=== PATIENT | female | born 1990 | race Caucasian/White ===

== ENCOUNTER 2017-01-05 09:14 | Emergency (ER) | payer OTHER ==
--- NOTE | 2017-01-05 09:34 | UC ---
Skin Complaint HPI - HPI Summary HPI Summary: 26 yo female with PMH chronic pain, hx of ETOH abuse in remission, depression and anxiety who presents with 5 days of pain, swelling and redness to left side of nose, she noted left facial swelling and tenderness in "front of my ear and behind my ear where my gland is" starting 3 days ago. No know injury or trauma, she does not think it was a pimple but reports its possible. possible chills yesterday but denies fevers. Denies N/V/D. No sob or CP. - History of Current Complaint Chief Complaint: UCSkin Time Seen by Provider: 01/05/17 09:17 Stated Complaint: FACIAL SWELLING Hx Obtained From: Patient Hx Last Menstrual Period: unknown ?: No Onset/Duration: Gradual Onset - started 5 days ago Skin Exposure Onset/Duration: Days Ago Timing: Constant Onset Severity: Mild Current Severity: Moderate Pain Intensity: 7 Pain Scale Used: 0-10 Numeric Location: Discrete - left side of nose radiating to left face and ear, Face, Nose Character: Pain, Redness Aggravating: Touch Alleviating: Heat, OTC Meds, Cold Compresses Associated Signs & Symptoms: Positive: Chills, Rash, Tenderness. Negative: Nausea, Vomiting, Thirst, Weakness, Shivering, Difficulty Breathing, Fever, Cough, Wheezing, Chest Pain, Hoarseness, Throat Tightening, Lightheadedness, Red Streaks - Allergy/Home Medications Allergies/Adverse Reactions: Allergies Allergy/AdvReac Type Severity Reaction Status Date / Time Cetirizine [From Zyrtec] Allergy Severe throat Verified 05/21/16 13:50 swelling,dry tongue Ciprofloxacin [From Cipro] Allergy Severe Rash Verified 05/21/16 13:50 Latex Allergy Severe rash,itchin Verified 05/21/16 13:50 g Home Medications: Home Medications Baclofen TAB* [Lioresal TAB*] 10 mg PO TID 01/05/17 [History Confirmed 01/05/17] Ibuprofen [Advil Migraine] 400 mg PO Q6HR PRN 01/05/17 [History Confirmed ] Review of Systems Constitutional: Chills Skin: Rash - redness and swelling to nose Eyes: Negative ENT: Other - difficult to blow her nose Respiratory: Negative Cardiovascular: Negative Gastrointestinal: Negative Genitourinary: Negative Motor: Negative Neurovascular: Negative Musculoskeletal: Negative Neurological: Negative Psychological: Negative All Other Systems Reviewed And Are Negative: Yes PMH/Surg Hx/FS Hx/Imm Hx Previously Healthy: No - Surgical History Surgical History: Yes Surgery Procedure, Year, and Place: Appendectomy. - Family History Known Family History: Positive: Hypertension - Social History Alcohol Use: None Substance Use Type: None Substance Use Comment - Amount & Last Used: RECOVERING ALCHOHOLIC Smoking Status (MU): Heavy Every Day Tobacco Smoker Type: Cigarettes, eCigarettes Amount Used/How Often: 1/2 PPD Length of Time of Smoking/Using Tobacco: 12 yrs Have You Smoked in the Last Year: Yes When Did the Patient Quit Smoking/Using Tobacco: 08/14 Household Exposure Type: Cigarettes Cessation Counseling: Counseled 3+Min - 10 Min Physical Exam Triage Information Reviewed: Yes Appearance: Well-Appearing, Well-Nourished, Pain Distress - mild Vital Signs: Initial Vital Signs Temp 98.4 F 01/05/17 09:18 Pulse 91 01/05/17 09:18 Resp 16 01/05/17 09:18 BP 112/62 01/05/17 09:18 Pulse Ox 100 01/05/17 09:18 Vital Signs Reviewed: Yes Eyes: Positive: Conjunctiva Clear ENT: Positive: Pharynx normal, Other: - no noted lesions in nares. Large area of erythema and mild edema on left side of nose, no noted lesion. No noted facial swelling.. Negative: Pharyngeal erythema, Nasal congestion, Nasal drainage, Tonsillar swelling, Tonsillar exudate Neck: Positive: Supple, Nontender, No Lymphadenopathy, Tenderness @ Respiratory: Positive: Chest non-tender, Lungs clear, Normal breath sounds, No respiratory distress, No accessory muscle use Cardiovascular: Positive: RRR, No Murmur, Pulses Normal, Brisk Capillary Refill Musculoskeletal: Positive: ROM Intact Neurological Exam: Normal Neurological: Positive: Alert Psychological Exam: Normal Skin: Positive: Other - erythema noted to left side of nose with noted edema present; no facial swelling noted; tender preauricular and tonsilar nodes to palpation Course/Dx - Differential Diagnoses - Skin Complaint Differential Diagnoses: Cellulitis, Local Allergic Reaction - Diagnoses Provider Diagnoses: 1. cellulitis to nose - Physician Notification/Consults Discussed Patient Care With: discussed discharge plan with pt Discharge - Discharge Plan Condition: Stable Disposition: HOME Prescriptions: Cephalexin CAP* [Keflex CAP*] 500 mg PO QID #28 cap Patient Education Materials: Cellulitis (ED) Referrals: Shannon Cristina MD [Primary Care Provider] - 2 Days (please follow up in 2-3 days. ) Additional Instructions: It appears you have a cellulitis on your nose. Finish whole course of antibiotics. If you have any worsening or concerning symptoms see your primary immediately, return to urgent care , or go to the emergency department.
[2017-01-05 09:42] VITALS: BP 112/62
== END 2017-01-05 10:01 | disposition home or self-care (01) ==
LOC: UCCORT 09:14
DX: J34.0 Abscess, furuncle and carbuncle of nose (principal); Z88.1 Allergy status to other antibiotic agents; F17.210 Nicotine dependence, cigarettes, uncomplicated; Z71.6 Tobacco abuse counseling
CPT/HCPCS: 99212; G0463

== ENCOUNTER 2017-05-17 07:23 | Emergency (ER) | payer SELFPAY ==
[2017-05-17 07:49] VITALS: BP 114/65
--- NOTE | 2017-05-17 07:55 | UC ---
Throat Pain/Nasal Avery HPI - HPI Summary HPI Summary: 26 yo female with URI symptoms greater than a week nasal congestion/post nasal drrip and facial pressure and pain past two days right facial pain has worsened/upper teeth and gums are now sensitive no f/c right [place] and right hemicranial headache thinks she is LMP end of MARCH - History of Current Complaint Chief Complaint: UCGeneralIllness Stated Complaint: HEAD PAIN/POSSIBLE Time Seen by Provider: 05/17/17 07:31 Hx Last Menstrual Period: HAS NOT HAD A PERIOD SINCE STOPPING DEPO IN MARCH, STATES NOT SEXUALLY ACTIVE Onset/Duration: Gradual Onset Severity: Moderate Pain Intensity: 6 Pain Scale Used: 0-10 Numeric - Allergies/Home Medications Allergies/Adverse Reactions: Allergies Allergy/AdvReac Type Severity Reaction Status Date / Time Cetirizine [From Zyrtec] Allergy Severe throat Verified 05/17/17 07:30 swelling,dry tongue Ciprofloxacin [From Cipro] Allergy Severe Rash Verified 05/17/17 07:30 Latex Allergy Severe rash,itchin Verified 05/17/17 07:30 g PMH/Surg Hx/FS Hx/Imm Hx Previously Healthy: Yes - Surgical History Surgical History: Yes Surgery Procedure, Year, and Place: Appendectomy. - Family History Known Family History: Positive: Hypertension - Social History Alcohol Use: None Substance Use Type: None Substance Use Comment - Amount & Last Used: RECOVERING ALCHOHOLIC Smoking Status (MU): Heavy Every Day Tobacco Smoker Type: Cigarettes, eCigarettes Amount Used/How Often: 1/2 PPD Length of Time of Smoking/Using Tobacco: 12 yrs Have You Smoked in the Last Year: Yes When Did the Patient Quit Smoking/Using Tobacco: 08/14 Household Exposure Type: Cigarettes Review of Systems Constitutional: Negative Skin: Negative Eyes: Negative ENT: Dental Pain, Ear Ache, Nasal Discharge, Sinus Congestion, Sinus Pain/ Tenderness Respiratory: Negative Cardiovascular: Negative Gastrointestinal: Negative Genitourinary: Negative Motor: Negative Neurovascular: Negative Musculoskeletal: Negative Neurological: Negative Psychological: Anxious All Other Systems Reviewed And Are Negative: Yes Physical Exam Triage Information Reviewed: Yes Appearance: Well-Appearing, No Pain Distress, Well-Nourished Vital Signs: Initial Vital Signs Temp 97.8 F 05/17/17 07:31 Pulse 98 05/17/17 07:31 Resp 16 05/17/17 07:31 BP 114/65 05/17/17 07:31 Pulse Ox 98 05/17/17 07:31 Eyes: Positive: Conjunctiva Clear ENT: Positive: Nasal congestion, Nasal drainage, Other: - bilat max sinus tenderness L>R. Negative: Hearing grossly normal - decreased hearing Left, TMs normal - both TMs scarred/left retracted , right bulging with bubbles noted behind TM, Tonsillar swelling, Tonsillar exudate, Trismus Neck: Positive: Supple, Nontender, Enlarged Nodes @ - ant cervical Respiratory: Positive: Lungs clear, Normal breath sounds, No respiratory distress, No accessory muscle use Cardiovascular: Positive: RRR, No Murmur Neurological: Positive: Alert, Muscle Tone Normal, Other: - cn2-12 intact/ strenght 5/5, normal gait GCS 15/15 Psychological Exam: Normal Skin Exam: Normal Throat Pain/Nasal Course/Dx - Differential Dx/Diagnosis Provider Diagnoses: acute sinusitis. Discharge - Discharge Plan Condition: Stable Disposition: HOME Prescriptions: Amoxicillin PO (*) [Amoxicillin 875 MG (*)] 875 mg PO BID #20 tab Patient Education Materials: (ED), Sinusitis (ED) Forms: *Gen. Provider Communication Referrals: Shannon Cristina MD [Primary Care Provider] - Additional Instructions: you should start vits with folate you need to find an OB recheck for new or worsening symptoms tylenol avoid advil/aleve\ warm facial compresses
== END 2017-05-17 08:04 | disposition home or self-care (01) ==
LOC: UCCORT 07:23
DX: J01.90 Acute sinusitis, unspecified (principal); H92.01 Otalgia, right ear; R51 Headache; Z32.01 Encounter for pregnancy test, result positive; Z88.1 Allergy status to other antibiotic agents; Z88.8 Allergy status to other drugs, medicaments and biological substances; Z91.040 Latex allergy status; F17.210 Nicotine dependence, cigarettes, uncomplicated
CPT/HCPCS: 81003; 84702; 87086; 99212; G0463

== ENCOUNTER 2017-08-26 10:04 | Emergency (ER) | payer OTHER ==
[2017-08-26 10:21] VITALS: BP 99/57
--- NOTE | 2017-08-26 10:55 | UC ---
Complaint Female HPI - HPI Summary HPI Summary: 27 year old 19 weeks . Pt here w/ lower abd cramping since waking up 0600 this morning. Pt 19 weeks . States cramping worse after voiding- denies any dysuria and hematuria, but c/o some lower back pain. Last OBGYN check up was last week, sonogram was "good, but showed ovary pushed against hip ". Next f/u w/ OBGYN next Wednesday. hAVING burning with urination and 8/10 pain in the RLQ at times no spotting. no fever. [ End ] - History Of Current Complaint Chief Complaint: UCGeneralIllness Stated Complaint: SEVERE CRAMPING,19 WEEKS Time Seen by Provider: 08/26/17 10:23 Hx Obtained From: Patient Hx Last Menstrual Period: HAS NOT HAD A PERIOD SINCE STOPPING DEPO IN MARCH, STATES NOT SEXUALLY ACTIVE Onset/Duration: Sudden Onset - 4 hours - Allergies/Home Medications Allergies/Adverse Reactions: Allergies Allergy/AdvReac Type Severity Reaction Status Date / Time Cetirizine [From Zyrtec] Allergy Severe throat Verified 08/26/17 10:12 swelling,dry tongue Ciprofloxacin [From Cipro] Allergy Severe Rash Verified 08/26/17 10:12 Latex Allergy Severe rash,itchin Verified 08/26/17 10:12 g Home Medications: Home Medications NK [No Home Medications Reported] 08/26/17 [History Confirmed 08/26/17] PMH/Surg Hx/FS Hx/Imm Hx Previously Healthy: Yes - Surgical History Surgical History: Yes Surgery Procedure, Year, and Place: Appendectomy. - Family History Known Family History: Positive: Hypertension - Social History Lives: With Family Alcohol Use: None Substance Use Type: None Substance Use Comment - Amount & Last Used: RECOVERING ALCHOHOLIC Smoking Status (MU): Heavy Every Day Tobacco Smoker Type: Cigarettes, eCigarettes Amount Used/How Often: 1/2 PPD Length of Time of Smoking/Using Tobacco: 12 yrs Have You Smoked in the Last Year: Yes When Did the Patient Quit Smoking/Using Tobacco: 08/14 Household Exposure Type: Cigarettes Cessation Counseling: Patient Advised to Stop - Immunization History Most Recent Influenza Vaccination: not yet 2017 Review of Systems Gastrointestinal: Abdominal Pain, Other - All Other Systems Reviewed And Are Negative: Yes Physical Exam Triage Information Reviewed: Yes Appearance: Well-Appearing, Well-Nourished Vital Signs: Initial Vital Signs Temp 98 F 08/26/17 10:12 Pulse 98 08/26/17 10:12 Resp 16 08/26/17 10:12 BP 99/57 08/26/17 10:12 Pulse Ox 100 08/26/17 10:12 Eye Exam: Normal ENT Exam: Normal Dental Exam: Normal Neck exam: Normal Neck: Positive: 1 Respiratory Exam: Normal Cardiovascular Exam: Normal Abdominal Exam: Normal Abdomen Description: Positive: Other: - gravid and some discomfort to palpation RLQ. Negative: CVA Tenderness (R), CVA Tenderness (L), Distended, Guarding Musculoskeletal Exam: Normal Neurological Exam: Normal Psychological Exam: Normal Skin Exam: Normal Complaint Female Dx - Course Course Of Treatment: spoke with Christine Dupree NP at [place] [facility] -- to go to ED for further work up with ED at this time. (+) ketones and trace bacteria in urine and will need antibiotics -- I told her if she is dismissed in any way and no Abx given to call me at and we will send in Abx as I work for another 11 hours here today - Differential Dx/Diagnosis Provider Diagnoses: Pelvic pain in with dehydration Discharge - Discharge Plan Condition: Good Disposition: HOME Patient Education Materials: Abdominal Pain in (ED) Referrals: Shannon Cristina MD [Primary Care Provider] - 1 Day Additional Instructions: PLEASE GO TO THE EMERGENCY ROOM FOR FURTHER EVALUATION .
== END 2017-08-26 11:31 | disposition home or self-care (01) ==
LOC: UCCORT 10:04
DX: O26.892 Other specified pregnancy related conditions, second trimester (principal); O99.334 Smoking (tobacco) complicating childbirth; F17.210 Nicotine dependence, cigarettes, uncomplicated; Z3A.19 19 weeks gestation of pregnancy; R10.2 Pelvic and perineal pain; E86.0 Dehydration
CPT/HCPCS: 81003; 84702; 87086; 99212; G0463